=== PATIENT | female | born 1995 | race Caucasian/White ===

== ENCOUNTER 2022-09-06 04:45 | Inpatient (IN) | payer BC ==
[2022-09-06] MEDS ORDERED: LACTATED RINGERS SOLUTION 1,000 ML IV SCH (05:30)
[2022-09-06 08:22] VITALS: BMI 38.9
[2022-09-06 08:31] LABS: INR 0.95 (0.83-1.09)
[2022-09-06 08:34] LABS: ACTIVATED PTT 31.2 SECONDS (25.2-36.5)
[2022-09-06 08:46] LABS: CALCIUM 8.6 mg/dL (8.5-10.1)
[2022-09-06 08:47] LABS: BLOOD UREA NITROGEN 9.6 mg/dL (7-18)
[2022-09-06 08:50] LABS: CREATININE 0.5 mg/dL (0.55-1.3)
[2022-09-06] MEDS ORDERED: LIDO 2%/EPI 1:200000 PRESRVFRE (20 ML SDVIAL) ONE (08:50)
[2022-09-06] MEDS ORDERED: BUPIVACAINE HCL/PF 0.25% (2.5MG/ML) 10 ML VIAL ONE (08:50)
[2022-09-06 08:58] LABS: BASO % 0.1 % (0-2.0); EOS % 0.2 % (0-4.5); HEMATOCRIT 38.1 % (32.4-45.2); HEMOGLOBIN 12.9 GM/dL (10.7-15.3); LYMPH % 8.9 % (8-40); MCH 29.2 pg (25.7-33.7); MCHC 33.9 g/dl (32.0-36.0); MEAN CELL VOLUME 86.1 fl (80-96); MEAN PLT VOLUME 10.2 fl (7.5-11.1); MONO % 5.5 % (3.8-10.2); NEUT % 85.3 % (42.8-82.8); PLATELET COUNT 266 10^3/uL (134-434); RBC 4.43 M/mm3 (3.60-5.2); RDW 13.2 % (11.6-15.6); WHITE BLOOD COUNT 15.4 K/mm3 (4.0-10.0)
[2022-09-06] MEDS ORDERED: FENTANYL/BUPIVACAINE/NS/PF - PCEA - 50 ML DISP.SYRIN EP ONE ×2 (09:05→13:55)
[2022-09-06] MEDS ORDERED: NALOXONE HCL 0.4 MG/ML VIAL IVPUSH PRN (09:38)
[2022-09-06] MEDS ORDERED: FENTANYL/BUPIVACAINE/NS/PF - PCEA - 50 ML DISP.SYRIN EP SCH (09:45)
[2022-09-06] MEDS ORDERED: OXYTOCIN 30 UNITS in 0.9% NS 30 UNIT/500 ML INFUS.BAG IVPB ONE (14:07)
[2022-09-06] MEDS ORDERED: ELECTROLYTE-148 SOLN 1,000 ML IV SCH (14:30)
[2022-09-06] MEDS ORDERED: OXYTOCIN 30 UNITS in 0.9% NS 30 UNIT/500 ML INFUS.BAG IVPB SCH (14:30)
[2022-09-06] MEDS ORDERED: OXYTOCIN 20 UNITS in 0.9% NS 20 UNIT/1,000 ML INFUS.BAG IV ONE (16:37)
[2022-09-06] MEDS ORDERED: LIDOCAINE HCL 1% PRESERVATIVE FREE - 30ML VIAL ONE (16:38)
[2022-09-06] MEDS ORDERED: BENZOCAINE 28 GM HEMORRHOIDAL OINTMENT TP PRN (17:07)
[2022-09-06] MEDS ORDERED: WITCH HAZEL 50% (TUCKS) 40 PAD/JAR PAD TP PRN (17:07)
[2022-09-06] MEDS ORDERED: oxyCODONE HCL 5 MG TABLET PO PRN (17:07)
[2022-09-06] MEDS ORDERED: BENZOCAINE 20% 57 GM BOTTLE TP PRN (17:07)
[2022-09-06] MEDS ORDERED: BISACODYL 10 MG SUPP.RECT RC PRN (17:07)
[2022-09-06] MEDS ORDERED: METHYLERGONOVINE MALEATE 0.2 MG/1 ML AMP IM PRN (17:07)
[2022-09-06] MEDS ORDERED: ACETAMINOPHEN 325 MG TABLET (FP) PO PRN (17:07)
[2022-09-06] MEDS ORDERED: OXYTOCIN 20 UNITS in 0.9% NS 20 UNIT/1,000 ML INFUS.BAG IV SCH (17:15)
[2022-09-06 17:52] VITALS: RESP 18
[2022-09-06] MEDS: IBUPROFEN 600 MG TABLET (FP) PO PRN (23:11)
[2022-09-07] MEDS: IBUPROFEN 600 MG TABLET (FP) PO PRN ×3 (08:24→20:22)
[2022-09-07 08:32] LABS: BASO % 0.1 % (0-2.0); EOS % 0.2 % (0-4.5); HEMATOCRIT 31.6 % (32.4-45.2); LYMPH % 10.6 % (8-40); MCH 29.5 pg (25.7-33.7); MCHC 34.7 g/dl (32.0-36.0); MEAN PLT VOLUME 10.2 fl (7.5-11.1); MONO % 8.3 % (3.8-10.2); NEUT % 80.8 % (42.8-82.8); PLATELET COUNT 210 10^3/uL (134-434); RBC 3.72 M/mm3 (3.60-5.2); RDW 13.3 % (11.6-15.6); WHITE BLOOD COUNT 12.2 K/mm3 (4.0-10.0)
[2022-09-07] MEDS ORDERED: SENNOSIDES/DOCUSATE COMBO (SENNA PLUS) TABLET (UD) PO PRN (22:00)
[2022-09-08] MEDS: IBUPROFEN 600 MG TABLET (FP) PO PRN ×3 (01:11→12:31)
[2022-09-08 14:57] VITALS: BP 115/73; PULSE 82; TEMP 98.2
== END 2022-09-08 14:35 | disposition home or self-care (01) | DRG 560 ==
LOC: JDEL 04:45 → JLDR 07:00 → J3W 19:38
PROVIDERS: ADMIT Specialist; ATTEND Specialist
PROC: 0W8NXZZ Division of Female Perineum, External Approach (ICD-10-PCS; principal; 2022-09-06)
PROC: 10E0XZZ Delivery of Products of Conception, External Approach (ICD-10-PCS; 2022-09-06)
DX: O34.211 Maternal care for low transverse scar from previous cesarean delivery (principal); O70.0 First degree perineal laceration during delivery; O99.892 Other specified diseases and conditions complicating childbirth; R52 Pain, unspecified; Z3A.39 39 weeks gestation of pregnancy; Z37.0 Single live birth
CPT/HCPCS: 36415; 59409; 80048; 85025; 85610; 85730; 86780; 86850; 86900; 86901; C9803-CS; U0003; U0005